=== PATIENT | male | born 1970 | race Caucasian/White ===

== ENCOUNTER 2020-03-21 18:10 | Inpatient (IN) ==
[2020-03-21] MEDS ORDERED: *HR* Ticagrelor 90 MG TABLET PO ONE (18:14)
[2020-03-21] MEDS ORDERED: *HR* Heparin 5,000 UNIT/ML VIAL IVP PRN ×2 (18:14)
[2020-03-21] MEDS ORDERED: *HR* Heparin 5,000 UNIT/ML VIAL IVP ONE (18:14)
[2020-03-21] MEDS ORDERED: Heparin 25,000UNIT/250ML 1/2NS 25,000 UNIT/250 ML IV.SOLN IVC SCH (18:15)
[2020-03-21 18:23] LABS: Basophils # 0.2 K/mcL (0.0-0.2); Basophils % 1.1 %; Eosinophils # 0.2 K/mcL (0.0-0.6); Eosinophils % 1.1 %; Hematocrit 47.4 % (37.5-50.1); Hemoglobin 15.6 g/dL (12.9-16.9); Immature Granulocytes % 0.4 % (0-4); Lymphocytes # 5.4 K/mcL (0.6-4.6); Lymphocytes % 38.9 %; Mean Corpuscular HGB Conc 32.9 g/dL (31.6-35.5); Mean Corpuscular Hemoglobin 31.6 pg (28.0-33.3); Mean Corpuscular Volume 96.1 fL (83.0-100.0); Mean Platelet Volume 8.7 fL (9.4-12.4); Monocytes # 1.1 K/mcL (0.0-1.3); Monocytes % 7.9 %; Neutrophils # 7.1 K/mcL (1.6-8.9); Platelet Count 391 K/mcL (140-400); Red Blood Count 4.93 M/mcL (4.19-5.50); Red Cell Distribution Width 12.4 % (11.5-14.5); Segmented Neutrophils % 50.6 %
[2020-03-21] MEDS ORDERED: 0.9 % Sodium Chloride 1,000 ML IVC ONE ×2 (18:26)
[2020-03-21 18:30] LABS: Heparin anti-factor XA UFH < 0.04 IU/mL (0.30-0.70); INR 1.1; Prothrombin Time 12.6 Seconds (9.4-12.1)
[2020-03-21 18:33] LABS: Activated Partial Thrombo Time 30.3 Seconds (26.0-36.0)
[2020-03-21] MEDS ORDERED: Heparin 1,000 UNITS/500 mL 500 ML ONE (18:37)
[2020-03-21] MEDS ORDERED: ISOVUE-370 200 ML INFUS..BTL ONE ×2 (18:37→19:21)
[2020-03-21] MEDS ORDERED: *HR* Heparin 10,000 UNIT/10 ML VIAL ONE (18:37)
[2020-03-21] MEDS ORDERED: 0.9 % Sodium Chloride 1,000 ML ONE (18:37)
[2020-03-21] MEDS ORDERED: Nitroglycerin 1,000 MCG/10 ML VIAL IV ONE (18:37)
[2020-03-21 18:41] LABS: BUN/Creatinine Ratio 6 (6-26); Blood Urea Nitrogen 6 mg/dL (6-20); Calcium 9.2 mg/dL (8.6-10.3); Carbon Dioxide 22 mEq/L (23-29); Chloride 103 mEq/L (98-107); Glucose 123 mg/dL (70-105); Magnesium 1.8 mg/dL (1.6-2.6); Osmolality,Calculated 281 (280-300); Potassium 3.2 mEq/L (3.5-5.1); Sodium 136 mEq/L (136-145); eGFR For African Americans > 60 (> 60); eGFR For Non-African Americans > 60 (> 60)
[2020-03-21 18:42] LABS: Troponin I < 0.03 ng/mL (< 0.04)
[2020-03-21] MEDS ORDERED: *HR* FentaNYL (PF) 100 MCG/2 ML VIAL IVP ONE (18:43)
[2020-03-21] MEDS ORDERED: Perflutren Lipid Microsphere 1.3 ML in 0.9 % Sodium Chloride 8.7 ML IVP PRN (18:54)
[2020-03-21] MEDS ORDERED: *HR* FentaNYL (PF) 100 MCG/2 ML VIAL ONE (18:59)
[2020-03-21] MEDS ORDERED: *HR* Midazolam HCl 2 MG/2 ML VIAL ONE (18:59)
[2020-03-21] MEDS ORDERED: Tirofiban 12.5 MG/250ML 12.5 MG/250 ML BAG IVC SCH (19:00)
[2020-03-21] MEDS ORDERED: Tirofiban 12.5 MG/250ML 12.5 MG/250 ML BAG ONE (19:04)
[2020-03-21] MEDS ORDERED: *HR* Atropine Sulfate 1 MG/10 ML SYRINGE ONE (19:08)
[2020-03-21] MEDS: *HR* Ticagrelor 90 MG TABLET PO SCH (20:43)
[2020-03-22 07:13] LABS: Basophils # 0.1 K/mcL (0.0-0.2); Basophils % 0.6 %; Eosinophils # 0.1 K/mcL (0.0-0.6); Eosinophils % 0.7 %; Hematocrit 40.4 % (37.5-50.1); Immature Granulocytes % 0.4 % (0-4); Lymphocytes # 2.5 K/mcL (0.6-4.6); Lymphocytes % 26.5 %; Mean Corpuscular HGB Conc 34.2 g/dL (31.6-35.5); Mean Corpuscular Hemoglobin 33.4 pg (28.0-33.3); Mean Corpuscular Volume 97.8 fL (83.0-100.0); Mean Platelet Volume 8.9 fL (9.4-12.4); Monocytes # 0.8 K/mcL (0.0-1.3); Monocytes % 8.9 %; Platelet Count 273 K/mcL (140-400); Red Blood Count 4.13 M/mcL (4.19-5.50); Red Cell Distribution Width 12.8 % (11.5-14.5); Segmented Neutrophils % 62.9 %; White Blood Count 9.5 K/mcL (4.3-11.1)
[2020-03-22 07:21] LABS: BUN/Creatinine Ratio 7 (6-26); Blood Urea Nitrogen 7 mg/dL (6-20); Calcium 8.7 mg/dL (8.6-10.3); Carbon Dioxide 25 mEq/L (23-29); Chloride 109 mEq/L (98-107); Glucose 87 mg/dL (70-105); Osmolality,Calculated 285 (280-300); Potassium 3.8 mEq/L (3.5-5.1); Sodium 139 mEq/L (136-145); eGFR For African Americans > 60 (> 60); eGFR For Non-African Americans > 60 (> 60)
[2020-03-22 07:35] LABS: Hemoglobin 13.8 g/dL (12.9-16.9)
[2020-03-22] MEDS: *HR* Ticagrelor 90 MG TABLET PO SCH ×2 (08:19→20:01)
[2020-03-22] MEDS ORDERED: Aspirin 81 MG TAB.CHEW PO SCH (09:00)
[2020-03-23] MEDS: Aspirin 81 MG TAB.CHEW PO SCH (08:14)
[2020-03-23] MEDS: *HR* Ticagrelor 90 MG TABLET PO SCH ×2 (08:14→19:41)
[2020-03-23 11:51] LABS: Hematocrit 43.3 % (37.5-50.1); Hemoglobin 14.6 g/dL (12.9-16.9); Mean Corpuscular HGB Conc 33.7 g/dL (31.6-35.5); Mean Platelet Volume 8.9 fL (9.4-12.4); Platelet Count 260 K/mcL (140-400); Red Blood Count 4.56 M/mcL (4.19-5.50); Red Cell Distribution Width 44.3 % (11.5-14.5); White Blood Count 8.7 K/mcL (4.3-11.1)
[2020-03-23 12:31] LABS: BUN/Creatinine Ratio 9 (6-26); Blood Urea Nitrogen 9 mg/dL (6-20); Calcium 9.3 mg/dL (8.6-10.3); Carbon Dioxide 26 mEq/L (23-29); Chloride 105 mEq/L (98-107); Glucose 108 mg/dL (70-105); Magnesium 1.8 mg/dL (1.6-2.6); Osmolality,Calculated 285 (280-300); Potassium 4.2 mEq/L (3.5-5.1); Sodium 138 mEq/L (136-145); eGFR For African Americans > 60 (> 60); eGFR For Non-African Americans > 60 (> 60)
[2020-03-24] MEDS: Aspirin 81 MG TAB.CHEW PO SCH (08:15)
[2020-03-24] MEDS: *HR* Ticagrelor 90 MG TABLET PO SCH (08:15)
[2020-03-24 12:18] VITALS: BP 97/73
== END 2020-03-24 14:41 | disposition home or self-care (01) | DRG 174 ==
LOC: EMEROOARM 18:10 → ICNU 18:52
PROVIDERS: ADMIT Internal Medicine Cardiovascular Disease; ATTEND Internal Medicine Cardiovascular Disease